=== PATIENT | male | born 1960 | race Caucasian/White ===

== ENCOUNTER 2017-08-09 18:36 | Observation (INO) | payer BC, OTHER ==
[~2017-08-09] VITALS: Ht 180.3 cm; Wt 108.9 kg
[2017-08-09 19:48] LABS: BASOPHILS % (AUTO) 0 % (0-10); EOSINOPHILS # (AUTO) 0.1 10^3/uL (0.0-0.3); EOSINOPHILS % (AUTO) 1 % (0-10); LYMPHOCYTES # (AUTO) 1.2 X 10^3 (1.0-4.0); LYMPHOCYTES % (AUTO) 13 % (12-44); MEAN CORPUSCULAR HEMOGLOBIN 31 PG (25-34); MEAN CORPUSCULAR HGB CONC 34 G/DL (32-36); MEAN CORPUSCULAR VOLUME 90 FL (80-99); MEAN PLATELET VOLUME 9.7 FL (7.4-10.4); MONOCYTES % (AUTO) 10 % (0-12); NEUTROPHILS # (AUTO) 7.3 X 10^3 (1.8-7.8); NEUTROPHILS % (AUTO) 76 % (42-75); PLATELET COUNT 199 10^3/uL (130-400); RED BLOOD COUNT 5.31 10^6/uL (4.35-5.85); RED CELL DISTRIBUTION WIDTH 12.4 % (10.0-14.5); WHITE BLOOD COUNT 9.6 10^3/uL (4.3-11.0)
[2017-08-09] MEDS ORDERED: TERB250T10 PO (19:54)
[2017-08-09] MEDS ORDERED: AMLO5TAB2 PO (19:54)
[2017-08-09] MEDS ORDERED: TIZA4TAB3 (19:54)
[2017-08-09] MEDS ORDERED: LISI1TAB10 PO (19:54)
[2017-08-09 20:03] LABS: ALANINE AMINOTRANSFERASE 37 U/L (0-55); ALBUMIN 4.1 GM/DL (3.2-4.5); ANION GAP 10 MMOL/L (5-14); ASPARTATE AMINO TRANSFERASE 29 U/L (5-34); BILIRUBIN,TOTAL 0.6 MG/DL (0.1-1.0); BLOOD UREA NITROGEN 28 MG/DL (7-18); BUN/CREATININE RATIO 25; CALCIUM 9.5 MG/DL (8.5-10.1); CARBON DIOXIDE 26 MMOL/L (21-32); CHLORIDE 105 MMOL/L (98-107); GFR ESTIMATED > 60; GLUCOSE 74 MG/DL (70-105); POTASSIUM 3.5 MMOL/L (3.6-5.0); SODIUM 141 MMOL/L (135-145); TOTAL PROTEIN 7.3 GM/DL (6.4-8.2); hs C REACTIVE PROTEIN 2.32 MG/DL (0.00-0.50)
--- NOTE | 2017-08-09 20:22 | ED Lower Extremity ---
General Chief Complaint: Lower Extremity Stated Complaint: R LEG SWELLING/REDNESS Nursing Triage Note: Pt reports seen at [facility] earlier and was referred to go to hospital for work up. Pt has a swollen red and warm right lower leg. Pt had pain at lower patella area since last . Onset noted today for pain and swelling. No hx of DVT. Pt works in concrete construction and on knees frequently. Nursing Sepsis Screen: Possible Sepsis Risk Source: patient Exam Limitations: no limitations History of Present Illness Time seen by provider: 20:21 Initial Comments Sent to ER from [facility] urgent care with right leg redness and swelling. 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 He states that occasionally he does have some swelling to the knee cap region of both legs with some mild redness. However, this just began today and now affects the entire right leg. He denies fevers or chills. Onset: this morning Severity: moderate Pain/Injury Location: right leg, right knee Modifying Factors: Worse With Movement Allergies and Home Medications Home Medications Amlodipine Besylate 5 Mg Tablet, (Reported) Lisinopril/Hydrochlorothiazide 1 Each Tablet, (Reported) Terbinafine HCl 250 Mg Tablet, (Reported) Tizanidine HCl 4 Mg Tablet, (Reported) Constitutional: see HPI EENTM: see HPI Respiratory: no symptoms reported Cardiovascular: no symptoms reported Genitourinary: no symptoms reported Skin: see HPI Psychiatric/Neurological: No Symptoms Reported Past Oewgrbk-Wtyamo-Daszlp Hx Patient Social History Alcohol Use: Denies Use Recreational Drug Use: No Smoking Status: Never a Smoker 2nd Hand Smoke Exposure: No Recent Foreign Travel: No Contact w/Someone Who Travel: No Recent Infectious Disease Expo: No Recent Hopitalizations: No Seasonal Allergies Seasonal Allergies: No Surgeries History of Surgeries: Yes (Lumbar back) Surgeries: Appendectomy Respiratory History of Respiratory Disorde: No Cardiovascular History of Cardiac Disorders: Yes Cardiac Disorders: Hypertension Neurological History of Neurological Disord: No Genitourinary History of Genitourinary Disor: No Gastrointestinal History of Gastrointestinal Di: No Musculoskeletal History of Musculoskeletal Dis: No Endocrine History of Endocrine Disorders: No HEENT History of HEENT Disorders: No Cancer History of Cancer: No Psychosocial History of Psychiatric Problem: No Integumentary History of Skin or Integumenta: Yes (Fungal infection on tx for right lower arm ) Blood Transfusions History of Blood Disorders: No Physical Exam Vital Signs Vital Sign - Last 12Hours 08/09/17 19:09 Temp 100.9 Pulse 100 Resp 20 B/P (MAP) 130/110 Pulse Ox 96 O2 Delivery Room Air Capillary Refill : Less Than 3 Seconds General Appearance: WD/WN, no apparent distress HEENT: PERRL/EOMI, normal ENT inspection Neck: non-tender, full range of motion Respiratory: no respiratory distress, no accessory muscle use Gastrointestinal: normal bowel sounds, non tender, soft Hips: bilateral hip non-tender, bilateral hip normal inspection, bilateral hip normal range of motion Legs: bilateral leg non-tender, left leg normal inspection, left leg normal range of motion, right leg other (erythema, swelling, petechial rash to the right leg) Knees: bilateral knee non-tender, bilateral knee normal inspection, bilateral knee normal range of motion Ankles: bilateral ankle non-tender, bilateral ankle normal inspection, bilateral ankle normal range of motion Feet: bilateral foot non-tender, bilateral foot normal inspection, bilateral foot normal range of motion Neurologic/Psychiatric: alert, normal mood/affect, oriented x 3 Skin: normal color, warm/dry Progress/Results/Core Measures Results/Orders Lab Results Laboratory Tests Test 08/09/17 19:30 Range/Units White Blood Count 9.6 4.3-11.0 10^3/uL Red Blood Count 5.31 4.35-5.85 10^6/uL Hemoglobin 16.2 13.3-17.7 G/DL Hematocrit 48 40-54 % Mean Corpuscular Volume 90 80-99 FL Mean Corpuscular Hemoglobin 31 25-34 PG Mean Corpuscular Hemoglobin Concent 34 32-36 G/DL Red Cell Distribution Width 12.4 10.0-14.5 % Platelet Count 199 130-400 10^3/uL Mean Platelet Volume 9.7 7.4-10.4 FL Neutrophils (%) (Auto) 76 H 42-75 % Lymphocytes (%) (Auto) 13 12-44 % Monocytes (%) (Auto) 10 0-12 % Eosinophils (%) (Auto) 1 0-10 % Basophils (%) (Auto) 0 0-10 % Neutrophils # (Auto) 7.3 1.8-7.8 X 10^3 Lymphocytes # (Auto) 1.2 1.0-4.0 X 10^3 Monocytes # (Auto) 1.0 0.0-1.0 X 10^3 Eosinophils # (Auto) 0.1 0.0-0.3 10^3/uL Basophils # (Auto) 0.0 0.0-0.1 10^3/uL D-Dimer 0.82 H 0.00-0.49 UG/ML Sodium Level 141 135-145 MMOL/L Potassium Level 3.5 L 3.6-5.0 MMOL/L Chloride Level 105 98-107 MMOL/L Carbon Dioxide Level 26 21-32 MMOL/L Anion Gap 10 5-14 MMOL/L Blood Urea Nitrogen 28 H 7-18 MG/DL Creatinine 1.10 0.60-1.30 MG/DL Estimat Glomerular Filtration Rate > 60 BUN/Creatinine Ratio 25 Glucose Level 74 70-105 MG/DL Lactic Acid Level 0.72 0.50-2.00 MMOL/L Calcium Level 9.5 8.5-10.1 MG/DL Total Bilirubin 0.6 0.1-1.0 MG/DL Aspartate Amino Transf (AST/SGOT) 29 5-34 U/L Alanine Aminotransferase (ALT/SGPT) 37 0-55 U/L Alkaline Phosphatase 91 40-136 U/L C-Reactive Protein High Sensitivity 2.32 H 0.00-0.50 MG/DL Total Protein 7.3 6.4-8.2 GM/DL Albumin 4.1 3.2-4.5 GM/DL My Orders Orders - MAIN FOY APRN Cbc With Automated Diff (08/09/17 19:26) Comprehensive Metabolic Panel (08/09/17 19:26) Blood Culture (08/09/17 19:26) Saline Lock/Iv-Start (08/09/17 19:26) Lactic Acid Analyzer (08/09/17 19:26) Hs C Reactive Protein (08/09/17 19:26) Fibrin Degradation Products (08/09/17 19:26) Us Venous Lower Ext Rt (08/09/17 20:18) Vital Signs/I&O Vital Sign - Last 12Hours 08/09/17 19:09 Temp 100.9 Pulse 100 Resp 20 B/P (MAP) 130/110 Pulse Ox 96 O2 Delivery Room Air Blood Pressure Mean: 117 Departure Impression Impression: Primary Impression: Cellulitis of right leg Disposition: 01 HOME, SELF-CARE Condition: Stable Admissions Decision to Admit Reason: Admit from ER (General) Decision to Admit/Date: Aug 09, 2017 Time/Decision to Admit Time: 20:30 Departure-Patient Inst. Referrals: SNEHAL VELAZCO JR, DO (PCP/Family) Primary Care Physician MAIN FOY APRN Aug 09, 2017 20:22
--- NOTE | 2017-08-09 21:12 | Diagnostic Imaging Report ---
INDICATION: Right lower extremity pain and edema COMPARISON: None TECHNIQUE: Duplex, ortiz-scale and color-flow imaging of the right lower extremity venous system was performed. FINDINGS: The common femoral vein, superficial femoral vein, profunda femoris, and popliteal veins are normal. These vessels show normal compressibility, color flow, and doppler augmentation. The deep calf veins, although not very well seen, demonstrate no distinct intraluminal thrombus. IMPRESSION: Negative venous Doppler of the right lower extremity. Dictated by: Dictated on workstation # [id number]
[2017-08-09] MEDS ORDERED: cefTRIAXone INJECTION 1,000 MG in NS (IVPB) 50 ML IV ONE (21:30)
[2017-08-09 22:20] VITALS: BP 148/93
[2017-08-09] MEDS ORDERED: ENOXAPARIN 40 MG/0.4 ML (LOVENOX) SYR SC SCH (23:00)
[2017-08-09] MEDS ORDERED: VANCOMYCIN 1 GM/NS 250 ML IVPB IV SCH ×2 (23:00)
[2017-08-10 00:19] VITALS: BP 130/80
[2017-08-10 03:32] VITALS: BP 114/74
[2017-08-10] MEDS ORDERED: VANCOMYCIN INJECTION 1,500 MG in NS IV 500 ML 500 ML IV SCH (07:00)
[2017-08-10 08:00] VITALS: BP 150/97
[2017-08-10] MEDS ORDERED: ASPI-983 PO (09:24)
--- NOTE | 2017-08-10 10:26 | Short Stay Summary-Hospitalist ---
HPI History of Present Illness: HPI/Chief Complaint The patient is a 56-year-old white male who presented to the emergency room last night with chief complaint of pain and swelling in his right lower leg. He had apparently gone to urgent care prior to that and they had sent him on to the emergency room. He reports that he is a [employer] and had been down on his knees working on his equipment. He began to have pain and some swelling in the area of his right patella. This then progressed to a red warm and tightly swollen right calf. He has had no puncture wounds or open skin areas. Exam Limitations: no limitations Date Seen 08/10/17 Time Seen by Provider: 10:24 Attending Physician Howard Ramirez MD PCP Damián Polanco Jr, Referring Physician Date of Admission Aug 09, 2017 at 21:29 Home Medications & Allergies Home Medications Reviewed patient Home Medication Reconciliation Form Allergies Allergies Coded Allergies No Known Drug Allergies (Unverified08/09/17) Past Epjymdh-Vntdtj-Rleqwg Hx Patient Social History Alcohol Use: Denies Use Recreational Drug Use: No Smoking Status: Never a Smoker 2nd Hand Smoke Exposure: No Physical Abuse Screen: No Sexual Abuse: No Recent Foreign Travel: No Contact w/other who traveled: No Recent Hopitalizations: No Recent Infectious Disease Expo: No Seasonal Allergies Seasonal Allergies: No Surgeries Yes (Lumbar back) Appendectomy Respiratory No Cardiovascular Yes Hypertension Neurological No Genitourinary No Gastrointestinal No Musculoskeletal No Endocrine History of Endocrine Disorders: No HEENT History of HEENT Disorders: No Cancer No Psychosocial History of Psychiatric Problem: No Integumentary History of Skin or Integumenta: Yes (Fungal infection on tx for right lower arm ) Blood Transfusions History of Blood Disorders: No Family Medical History Family Hx: Cardiovascular disease 19 FATHER Cataracts 19 MOTHER Headache disorder 19 MOTHER Hypercholesterolemia 19 FATHER Hypertension 19 FATHER Myocardial infarction 19 FATHER Thyroid disease 19 MOTHER Review of Systems Constitutional: see HPI EENTM: no symptoms reported Respiratory: no symptoms reported Cardiovascular: no symptoms reported Gastrointestinal: no symptoms reported Genitourinary: no symptoms reported Musculoskeletal: see HPI, joint swelling, muscle pain Skin: see HPI Psychiatric/Neurological: No Symptoms Reported Physical Exam Physical Exam Vital Signs Vital Sign - Last 12Hours 08/09/17 19:09 Temp 100.9 Pulse 100 Resp 20 B/P (MAP) 130/110 Pulse Ox 96 O2 Delivery Room Air Capillary Refill : Less Than 3 Seconds General Appearance: Mild Distress Eyes: Bilateral Eye Normal Inspection HEENT: Normal ENT Inspection Neck: Normal Inspection Respiratory: Chest Non Tender, Lungs Clear, Normal Breath Sounds, No Accessory Muscle Use, No Respiratory Distress Cardiovascular: Regular Rate, Rhythm, No Edema, No Gallop, No JVD, No Murmur, Normal Peripheral Pulses Gastrointestinal: Normal Bowel Sounds, No Organomegaly, No Pulsatile Mass, Non Tender, Soft Back: Normal Inspection, No CVA Tenderness, No Vertebral Tenderness Lymphatic: No Adenopathy Comments The right leg is swollen from the malleoli to the knee. There is palpable fluid in the prepatellar bursa. There appears to be no fluid in the suprapatellar bursa. There is redness and slight warmth which she states is less than was present last night. The right calf is quite tight but not shiny. No open skin wounds are noted on the knee calf or foot. Results Results/Procedures Lab Laboratory Tests 08/09/17 19:30 Short Stay Diagnosis Discharge Diagnosis-Short Stay Admission Diagnosis Right prepatellar bursitis. 2.cellulitis right calf Final Discharge Diagnosis Right prepatellar bursitis. 2.cellulitis right calf Conclusion Plan Discharge today with Indocin as an anti-inflammatory and Omnicef. He will report to his personal physician relative to progress or complications Clinical Quality Measures DVT/VTE Risk/Contraindication: Risk Factor Score Per Nursin RFS Level Per Nursing on Admit: 4+=Very High HOWARD RAMIREZ MD Aug 10, 2017 10:26
[2017-08-10] MEDS ORDERED: CEFD300C3 PO (10:30)
[2017-08-10] MEDS ORDERED: Indocin (10:30)
--- NOTE | 2017-08-10 10:32 | Discharge Instructions ---
Discharge Instructions Patient Instructions Patient Instructions: Resume home medications as per discharge sequence. Take new medications, Omnicef and Indocin, as directed Avoid kneeling. Culture report will be sent to your personal physician. Return to The [facility]: Change in condition Activity & Diet Discharge Diet: No Restrictions YIMI RAMIREZ MD Aug 10, 2017 10:32
[2017-08-10] MEDS ORDERED: INDO25CA PO (10:38)
[2017-08-10 10:55] VITALS: BP 150/97
[2017-08-10] MEDS ORDERED: cefTRIAXone INJECTION 1,000 MG in NS (IVPB) 50 ML IV SCH (21:30)
[2017-08-11] MEDS ORDERED: TROUGH ORDER-PHARMACY XX NR (06:00)
== END 2017-08-10 10:30 | disposition home or self-care (01) ==
LOC: ER 18:42 → 4TH 21:29 → UNDOADMOB 21:29 → 4TH 22:00 → UNDODISOB 08-10 10:55
PROVIDERS: ADMIT Internal Medicine; ATTEND Internal Medicine
DX: M70.41 Prepatellar bursitis, right knee (principal); L03.115 Cellulitis of right lower limb
CPT/HCPCS: 36415; 80053; 83605; 85025; 85379; 86141; 87040; 99211; G0378

== ENCOUNTER → 2022-01-08 | Outpatient (CLI) | payer SELFPAY ==
[~2022-01-08] MED LIST: AMLO-250 PO; ASPI-1238 PO; CEFD300C3 PO; INDO25CA99 PO; Indocin; LISI1TAB48 PO; TERB250T88 PO; TIZA-186
== END ==
LOC: ORTHO 14:42
PROVIDERS: ATTEND Orthopaedic Surgery
DX: M79.672 Pain in left foot (principal); I10 Essential (primary) hypertension
CPT/HCPCS: 99202

== ENCOUNTER → 2023-10-06 | Outpatient (CLI) | payer MEDICARE, OTHER ==
--- NOTE | 2023-10-06 17:20 | Diagnostic Imaging Report ---
EXAMINATION: Right hip unilateral 2 or 3 views (w/pelvis when done) HISTORY: Hip pain COMPARISON: None available. FINDINGS: Alignment is normal. No fracture is seen. Joint spaces are normal. IMPRESSION: 1. No fracture. Dictated by: Dictated on workstation # [id number]
== END ==
LOC: ORTHO 10:07
PROVIDERS: ATTEND Orthopaedic Surgery
DX: M75.101 Unspecified rotator cuff tear or rupture of right shoulder, not specified as traumatic (principal); M70.61 Trochanteric bursitis, right hip
CPT/HCPCS: 20610; 73502; G0463; 99203

== ENCOUNTER → 2023-10-13 | Outpatient (CLI) | payer MEDICARE, OTHER | LOC: RAD 14:43 | PROVIDERS: ATTEND Orthopaedic Surgery | DX: M75.101 Unspecified rotator cuff tear or rupture of right shoulder, not specified as traumatic (principal) ==